=== PATIENT | male | born 1960 | race Caucasian/White ===

== ENCOUNTER 2018-03-05 16:44 | Emergency (ER) | payer BC ==
[2018-03-05 17:00] VITALS: TEMP 98.6
--- NOTE | 2018-03-05 18:01 | C.PDOC ---
History Of Present Illness 57 year old male with no medical history presents to the ED complaining of sore throat, cough, subjective fever and myalgias for 3 days. Reports he received the flu vaccination this season. Denies recent travels but reports both daughter and son are sick with the flu at home. Denies any shortness of breath, chest pain, n/v/d, nasal congestion, headache, ear pain, or any other complaints. PMD: Dr. Trevor Yan Time Seen by Provider: 03/05/18 17:52 Chief Complaint (Nursing): Cough, Cold, Congestion History Per: Patient History/Exam Limitations: no limitations Onset/Duration Of Symptoms: Days (3) Current Symptoms Are (Timing): Still Present Location Of Pain: Throat, Diffuse Myalgias Sick Contacts (Context): Family Member(s) Associated Symptoms: Fever, Sore Throat, Cough, Myalgias. denies: Nasal Congestion, Nausea, Vomiting, Diarrhea Ear Symptoms: Bilateral: None Recent travel outside of the [place]: No Past Medical History Reviewed: Historical Data, Nursing Documentation, Vital Signs Vital Signs: Last Vital Signs Temp 98.6 F 03/05/18 16:55 Pulse 76 03/05/18 16:55 Resp 19 03/05/18 16:55 BP 135/76 03/05/18 16:55 Pulse Ox 99 03/05/18 16:55 - Medical History PMH: Hypercholesterolemia Denies: Chronic Kidney Disease Surgical History: No Surg Hx Family History: States: Diabetes - Social History Hx Tobacco Use: No Hx Alcohol Use: No Hx Substance Use: No - Immunization History Hx Tetanus Toxoid Vaccination: No Hx Influenza Vaccination: Yes Hx Pneumococcal Vaccination: No Review Of Systems Except As Marked, All Systems Reviewed And Found Negative. Constitutional: Positive for: Fever, Other (myalgias ) ENT: Positive for: Throat Pain. Negative for: Ear Pain, Nose Discharge, Nose Congestion Cardiovascular: Negative for: Chest Pain Respiratory: Positive for: Cough. Negative for: Shortness of Breath Gastrointestinal: Negative for: Nausea, Vomiting, Diarrhea Physical Exam - Physical Exam Appears: Non-toxic, No Acute Distress Skin: Warm, Dry, No Rash Head: Normacephalic Eye(s): bilateral: Normal Inspection Ear(s): Bilateral: Normal Nose: Normal Oral Mucosa: Moist Tongue: Normal Appearing Lips: Normal Appearing Teeth: Normal Dentition Gingiva: Normal Appearing Throat: Normal, No Erythema, No Exudate Neck: Supple Chest: Symmetrical Cardiovascular: Rhythm Regular Respiratory: Normal Breath Sounds, No Rales, No Rhonchi, No Wheezing Neurological/Psych: Oriented x3, Normal Speech Gait: Steady ED Course And Treatment O2 Sat by Pulse Oximetry: 99 (RA) Pulse Ox Interpretation: Normal Disposition - Disposition - Scribe Statement The provider has reviewed the documentation as recorded by the Scribe Aleena Ornelas All medical record entries made by the Kendrickibkenyetta were at my direction and personally dictated by me. I have reviewed the chart and agree that the record accurately reflects my personal performance of the history, physical exam, medical decision making, and the department course for this patient. I have also personally directed, reviewed, and agree with the discharge instructions and disposition.
--- NOTE | 2018-03-05 18:01 | C.PDOC ---
History Of Present Illness 57 year old male with no medical history presents to the ED complaining of sore throat, cough, subjective fever and myalgias for 3 days. Reports he received the flu vaccination this season. Denies recent travels but reports both daughter and son are sick with the flu at home. Denies any shortness of breath, chest pain, n/v/d, nasal congestion, headache, ear pain, or any other complaints. PMD: Dr. Trevor Yan Time Seen by Provider: 03/05/18 17:52 Chief Complaint (Nursing): Cough, Cold, Congestion History Per: Patient History/Exam Limitations: no limitations Onset/Duration Of Symptoms: Days (3) Current Symptoms Are (Timing): Still Present Location Of Pain: Throat, Diffuse Myalgias Sick Contacts (Context): Family Member(s) Associated Symptoms: Fever, Sore Throat, Cough, Myalgias. denies: Nasal Congestion, Nausea Ear Symptoms: Bilateral: None Recent travel outside of the [place]: No Past Medical History Reviewed: Historical Data, Nursing Documentation, Vital Signs Vital Signs: Last Vital Signs Temp 98.6 F 03/05/18 16:55 Pulse 76 03/05/18 16:55 Resp 19 03/05/18 16:55 BP 135/76 03/05/18 16:55 Pulse Ox 99 03/05/18 16:55 - Medical History PMH: Hypercholesterolemia Denies: Chronic Kidney Disease Surgical History: No Surg Hx Family History: States: No Known Family Hx - Social History Hx Tobacco Use: No Hx Alcohol Use: No Hx Substance Use: No - Immunization History Hx Tetanus Toxoid Vaccination: No Hx Influenza Vaccination: Yes Hx Pneumococcal Vaccination: No Review Of Systems Except As Marked, All Systems Reviewed And Found Negative. Constitutional: Positive for: Fever, Other (myalgias) ENT: Positive for: Throat Pain. Negative for: Ear Pain, Nose Discharge, Nose Congestion Cardiovascular: Negative for: Chest Pain Respiratory: Positive for: Cough. Negative for: Shortness of Breath Gastrointestinal: Negative for: Nausea, Vomiting, Diarrhea Physical Exam - Physical Exam Appears: Non-toxic, No Acute Distress Skin: Warm, Dry, No Rash Head: Normacephalic Eye(s): bilateral: Normal Inspection Ear(s): Bilateral: Normal Nose: Normal Oral Mucosa: Moist Tongue: Normal Appearing Lips: Normal Appearing Teeth: Normal Dentition Gingiva: Normal Appearing Throat: Erythema Neck: Supple Chest: Symmetrical Cardiovascular: Rhythm Regular Respiratory: Normal Breath Sounds, No Rales, No Rhonchi, No Wheezing Neurological/Psych: Oriented x3, Normal Speech Gait: Steady ED Course And Treatment O2 Sat by Pulse Oximetry: 99 (RA) Pulse Ox Interpretation: Normal Medical Decision Making Medical Decision Making: Patient appears non-toxic and in no distress. Rx given. Patient advised to rest, drink fluids and take medications for supportive treatment. Patient stable for discharge and given follow up instructions. Disposition - Disposition Referrals: Susan Yan MD [Medical Doctor] - Disposition Time: 17:59 Additional Instructions: Ms. Horton, thank you for letting us take care of you today. Return to the ER if your symptoms worsen, or if any problems. Take the medication listed below as prescribed. Follow up with your doctor in 2-3 days for a re-evaluation. / Prescriptions: Ibuprofen [Motrin] 1 tab PO Q8 PRN #30 tab PRN Reason: Pain, Moderate (4-7) Loratadine [Claritin] 1 tab PO DAILY #14 tab Oseltamivir Phosphate [Tamiflu] 1 tab PO BID #10 capsule Instructions: Influenza (ED) Forms: [employer] (Palauan) Print Language: SAMI - POA Present On Arrival: None - Clinical Impression Clinical Impression: Influenza-like illness - Scribe Statement The provider has reviewed the documentation as recorded by the Scribkenyetta Ornelas All medical record entries made by the Scribe were at my direction and personally dictated by me. I have reviewed the chart and agree that the record accurately reflects my personal performance of the history, physical exam, medical decision making, and the department course for this patient. I have also personally directed, reviewed, and agree with the discharge instructions and disposition.
[2018-03-05 18:31] VITALS: BP 135/72; PULSE 86; RESP 18; O2SAT 98
== END 2018-03-05 18:30 | disposition home or self-care (01) ==
LOC: C.ER 16:44
DX: J11.1 Influenza due to unidentified influenza virus with other respiratory manifestations (principal)

== ENCOUNTER 2018-06-04 15:16 | Emergency (ER) | payer BC ==
[2018-06-04 15:20] VITALS: O2SAT 98
[2018-06-04] MEDS ORDERED: Sodium Chloride 0.9% 1,000 ML IV STA (15:46)
[2018-06-04] MEDS ORDERED: Alum-Mag Hydrox-Simethicone Susp (30 mL) PO STA (15:46)
--- NOTE | 2018-06-04 15:49 | C.PDOC ---
History Of Present Illness 57 y/o M c PMHx HLD p/w diarrhea x 2 days. Feels generally weak and dehydrated. Reports intermittent abdominal cramping when having to have a bowel movement. Denies fever, nausea, vomiting, recent travel, antibiotics, history of HIV/AIDS, camping, hiking. Time Seen by Provider: 06/04/18 15:35 Chief Complaint (Nursing): Abdominal Pain Past Medical History Vital Signs: Last Vital Signs Temp 98.7 F 06/04/18 15:17 Pulse 80 06/04/18 15:17 Resp 20 06/04/18 15:17 BP 123/76 06/04/18 15:17 Pulse Ox 98 06/04/18 15:17 - Medical History PMH: Hypercholesterolemia Denies: Chronic Kidney Disease Family History: States: No Known Family Hx - Social History Hx Tobacco Use: No Hx Alcohol Use: Yes Hx Substance Use: No - Immunization History Hx Tetanus Toxoid Vaccination: No Hx Influenza Vaccination: Yes Hx Pneumococcal Vaccination: No Review Of Systems Except As Marked, All Systems Reviewed And Found Negative. Cardiovascular: Negative for: Chest Pain Respiratory: Negative for: Shortness of Breath Gastrointestinal: Negative for: Abdominal Pain Physical Exam - Physical Exam Additional Physical Exam Comments: gen nad head nc/at eyes perrl ent dry mm neck supple chest no tenderness cv reg rate lungs cta b/l abd soft, nt, nd back no cva tenderness skin no rash neuro alert, no focal deficit extremities no edema ED Course And Treatment - Laboratory Results Result Diagrams: 06/04/18 16:07 06/04/18 16:07 O2 Sat by Pulse Oximetry: 98 Medical Decision Making Medical Decision Making: Feels better, labs unremarkable. Discharge home, f/u PMD, return to ED for worsening pain, vomiting, fever, bleeding, or any other problem. Disposition - Disposition Disposition: HOME/ ROUTINE Disposition Time: 16:46 Condition: GOOD Prescriptions: Ondansetron ODT [Zofran ODT] 4 mg PO Q8 #12 odt Instructions: Viral Gastroenteritis Forms: [employer] (Cam[place]onian) - Clinical Impression Clinical Impression: Diarrhea
[2018-06-04 16:10] LABS: BASO % 0.3 % (0.0-2.0); EOS # 0.4 K/uL (0.0-0.7); EOS % 6.1 % (0.0-4.0); HEMOGLOBIN 14.4 g/dL (12.0-18.0); LYMPH # 1.5 K/uL (1.0-4.3); LYMPH % 21.6 % (20.0-40.0); MEAN CELL VOLUME 94.1 fL (80.0-94.0); MEAN CORPUSCULAR HEMOGLOBIN 31.5 pg (27.0-31.0); MEAN CORPUSCULAR HGB CONC 33.5 g/dL (33.0-37.0); MEAN PLATELET VOLUME 8.4 fL (7.2-11.7); MONO # 0.7 K/uL (0.0-0.8); MONO % 9.8 % (0.0-10.0); NEUT # 4.4 K/uL (1.8-7.0); NEUT % 62.2 % (50.0-75.0); RBC 4.58 Mil/uL (4.40-5.90); RED CELL DISTRIBUTION WIDTH 14.1 % (11.5-14.5); WHITE BLOOD COUNT 7.1 K/uL (4.8-10.8)
[2018-06-04 16:13] LABS: SQUAMOUS EPITHIAL < 1 /hpf (0-5); URINE BILIRUBIN NEGATIVE (NEGATIVE); URINE BLOOD 1+ (NEGATIVE); URINE CLARITY Clear (Clear); URINE COLOR Yellow (YELLOW); URINE GLUCOSE (UA) NORMAL (Normal); URINE LEUKOCYTE ESTERASE NEG Leu/uL (Negative); URINE PROTEIN NEGATIVE (NEGATIVE); URINE UROBILINOGEN NORMAL mg/dL (0.2-1.0)
[2018-06-04] MEDS ORDERED: Aluminum Hydroxide/Magnesium Hydroxide Susp (30 mL) ONE (16:15)
[2018-06-04 16:22] LABS: ALB/GLOB RATIO 1.3 (1.0-2.1); ALBUMIN 4.4 g/dL (3.5-5.0); ALT/SGPT 25 U/L (21-72); AST/SGOT 30 U/L (17-59); BLOOD UREA NITROGEN 11 mg/dL (9-20); CALCIUM 9.2 mg/dl (8.6-10.4); GFR NON-AFRICAN AMERICAN > 60; LIPASE 108 U/L (23-300)
[2018-06-04 17:11] VITALS: BP 118/69; PULSE 78; RESP 18; TEMP 98
== END 2018-06-04 17:11 | disposition home or self-care (01) ==
LOC: C.ER 15:16
DX: R19.7 Diarrhea, unspecified (principal)
CPT/HCPCS: 80053; 81001; 83690; 85025; 87086; 96374; 96375; 99284; J2405; J7030